=== PATIENT | male | born 1935 | race Caucasian/White ===

== ENCOUNTER 2021-10-29 09:23 | Day surgery (SDC) | payer MEDICARE ==
[2021-10-27 13:39] VITALS: BP 156/87
[2021-10-27 17:06] LABS: BASOPHILS % (AUTO) 0.6 % (0.0-5.0); EOSINOPHILS % (AUTO) 1.1 % (0.0-8.0); HEMATOCRIT 43.5 % (42-54); LYMPHOCYTES % (AUTO) 14.3 % (21.0-51.0); MEAN CORPUSCULAR HEMOGLOBIN 27.8 pg (27.0-33.0); MEAN CORPUSCULAR HGB CONC 30.1 g/dL (32.0-36.0); MEAN CORPUSCULAR VOLUME 92.4 fL (79-99); MONOCYTES % (AUTO) 5.9 % (3.0-13.0); NEUTROPHILS % (AUTO) 77.7 % (40.0-77.0); PLATELET COUNT (AUTO) 216 K/uL (130-400); RED BLOOD CELL COUNT(AUTO) 4.71 MIL/uL (4.50-6.20); RED CELL DISTRIBUTION WIDTH 14.8 % (11.0-15.5); WHITE BLOOD COUNT (AUTO) 9.7 K/uL (4.8-10.8)
[2021-10-27 17:07] LABS: APPEARANCE,URINE CLEAR (CLEAR); BILIRUBIN,URINE NEGATIVE (NEGATIVE); COLOR,URINE YELLOW (YELLOW); GLUCOSE, URINE (UA) NEGATIVE (NEGATIVE); KETONES,URINE NEGATIVE (NEGATIVE); LEUKOCYTE ESTERASE ,URINE NEGATIVE (NEGATIVE); NITRATE,URINE NEGATIVE (NEGATIVE); OCCULT BLOOD,URINE NEGATIVE (NEGATIVE); PROTEIN,URINE NEGATIVE (NEGATIVE); UROBILINOGEN,URINE 0.2 mg/dL (0.2-1.0)
[2021-10-27 17:16] LABS: CREATININE 0.9 mg/dL (0.5-1.5)
[2021-10-27 17:18] LABS: INR 1.07 (0.85-1.15); PROTHROMBIN TIME 11.6 SEC (9.6-11.6)
[2021-10-27 17:20] LABS: PARTIAL THROMBOPLASTIN TIME 30.1 SEC (26.3-35.5)
[~2021-10-29] VITALS: Ht 170.2 cm; Wt 72.0 kg
[2021-10-29] MEDS ORDERED: 0.9%NACL 1000ML 1,000 ML IV ONE (09:27)
[2021-10-29 09:45] VITALS: BP 138/87
[2021-10-29] MEDS ORDERED: MULT-1367 PO (10:21)
[2021-10-29] MEDS ORDERED: CHOL500051 PO (10:21)
[2021-10-29] MEDS ORDERED: VITC1TAB PO (10:21)
[2021-10-29] MEDS ORDERED: CLOP75TA32 PO (10:21)
[2021-10-29] MEDS ORDERED: ROSU40TA21 PO (10:21)
[2021-10-29] MEDS ORDERED: MIRT-93 PO (10:21)
[2021-10-29] MEDS ORDERED: MONT-39 PO (10:21)
[2021-10-29] MEDS ORDERED: LUBI8CAP5 PO (10:21)
[2021-10-29] MEDS ORDERED: TAMS-1 PO (10:21)
[2021-10-29] MEDS ORDERED: GLUC1CAP7 PO (10:21)
[2021-10-29] MEDS ORDERED: ACET325T51 PO (10:21)
[2021-10-29] MEDS ORDERED: PANT40TA54 PO (10:21)
[2021-10-29] MEDS ORDERED: POTA-79 PO (10:21)
[2021-10-29] MEDS ORDERED: FURO20TA4 PO (10:21)
[2021-10-29] MEDS ORDERED: GABA-529 PO (10:21)
[2021-10-29] MEDS ORDERED: APIX5TAB PO (10:21)
[2021-10-29] MEDS ORDERED: TIZA-211 PO (10:21)
[2021-10-29] MEDS ORDERED: DILT300C54 PO (10:21)
[2021-10-29] MEDS ORDERED: BIVALIRUDIN 250 MG/VIAL IV ONE (12:25)
[2021-10-29] MEDS ORDERED: LIDOCAINE HCL 400MG/20ML VIAL ONE (12:26)
[2021-10-29] MEDS ORDERED: MIDAZOLAM HCL 1 MG/ML 2ML VIAL ONE (12:26)
[2021-10-29] MEDS ORDERED: IOHEXOL-350 50ML VIAL IV ONE (12:26)
[2021-10-29] MEDS ORDERED: IOHEXOL 350 MG/ML 100ML INFUS..BTL IV ONE (12:26)
[2021-10-29] MEDS ORDERED: FENTANYL CITRATE PF 50 MCG/1 ML 2ML VIAL ONE (12:26)
[2021-10-29] MEDS ORDERED: NITROGLYCERIN 50MG VIAL ONE (12:29)
[2021-10-29 13:50] VITALS: BP 122/81
[2021-10-29] MEDS ORDERED: 0.9%NACL 10ML VIAL IVP SCH (14:00)
[2021-10-29 14:05] VITALS: BP 123/81
[2021-10-29 14:20] VITALS: BP 118/81
[2021-10-29 14:35] VITALS: BP 123/81
[2021-10-29 14:50] VITALS: BP 135/97
== END 2021-10-29 18:19 | disposition home or self-care (01) ==
LOC: DAH 09:23
PROVIDERS: ATTEND Internal Medicine Cardiovascular Disease
DX: I25.119 Atherosclerotic heart disease of native coronary artery with unspecified angina pectoris (principal); I11.0 Hypertensive heart disease with heart failure; I50.9 Heart failure, unspecified; E78.5 Hyperlipidemia, unspecified; J44.9 Chronic obstructive pulmonary disease, unspecified; Z95.5 Presence of coronary angioplasty implant and graft; Z98.890 Other specified postprocedural states; Z90.49 Acquired absence of other specified parts of digestive tract; Z79.899 Other long term (current) drug therapy; Z79.01 Long term (current) use of anticoagulants
CPT/HCPCS: 36415; 80048; 81003; 82948; 85025; 85610; 85730; 93005; 93458; A4215; A4216; A4221; A4222; A4223 ×3; A4606; A4663; C1760; C1894 ×2; J1644; J2250; J3010; J3490 ×2; J7030; Q9965; Q9967 ×2; 99156; 99157; J0583

== ENCOUNTER → 2023-08-04 | Outpatient (CLI) | payer MEDICARE ==
[~2023-08-04] MED LIST: ACET325T51 PO; APIX5TAB PO; CHOL500051 PO; CLOP75TA32 PO; DILT300C54 PO; FURO20TA4 PO; GABA-529 PO; GLUC1CAP7 PO; LUBI8CAP5 PO; MIRT-93 PO; MONT-39 PO; MULT-1367 PO; PANT40TA54 PO; POTA-364 PO; ROSU40TA21 PO; TAMS-1 PO; TIZA-211 PO; VITC1TAB PO
== END | disposition home or self-care (01) ==
LOC: RAH 11:26
PROVIDERS: ATTEND Family Medicine
DX: K59.04 Chronic idiopathic constipation (principal); I87.8 Other specified disorders of veins; M47.815 Spondylosis without myelopathy or radiculopathy, thoracolumbar region; Z90.49 Acquired absence of other specified parts of digestive tract
CPT/HCPCS: 74021

== ENCOUNTER 2023-10-07 12:56 | Emergency (ER) | payer MEDICARE ==
[~2023-10-07] VITALS: Ht 172.7 cm; Wt 70.3 kg
[2023-10-07 13:12] VITALS: BP 117/70; PULSE 93; RESP 16; O2SAT 98
[2023-10-07] MEDS ORDERED: CLON0.5T4 PO (13:37)
== END 2023-10-07 14:32 | disposition home or self-care (01) ==
LOC: EDH 12:56
DX: Z76.0 Encounter for issue of repeat prescription (principal)
CPT/HCPCS: 99282